=== PATIENT | female | born 1995 | race American Indian/Alaskan Native ===

== ENCOUNTER 2017-11-27 17:47 | Outpatient (CLI) | payer MEDICAID ==
[2017-11-27 18:15] VITALS: BP 105/58
[2017-11-27 18:59] LABS: Bacteria,Urine 1+ /HPF (Negative); Bilirubin,Urine NEG (Negative); Blood,Urine NEG (Negative); Color,Urine Yellow (Yellow); Mucus,Urine FEW /HPF; Protein,Urine <15 mg/dL mg/dL (Negative)
[2017-11-27] MEDS ORDERED: LACTATED RINGERS 500 ML IV ONE (19:00)
== END 2017-11-27 20:30 | disposition home or self-care (01) ==
LOC: TRG 17:47
PROVIDERS: ATTEND Obstetrics & Gynecology
DX: O47.03 False labor before 37 completed weeks of gestation, third trimester (principal); Z3A.30 30 weeks gestation of pregnancy
CPT/HCPCS: 81001; J7120

== ENCOUNTER 2017-12-22 16:22 | Outpatient (CLI) | payer MEDICAID ==
[2017-12-22 17:44] VITALS: BP 110/65
[2017-12-22] MEDS ORDERED: LACTATED RINGERS 1,000 ML IV SCH (20:30)
[2017-12-22] MEDS ORDERED: LACTATED RINGERS 1,000 ML ONE ×2 (20:32→22:36)
[2017-12-22 21:12] LABS: Bilirubin,Urine NEG (Negative); Blood,Urine NEG (Negative); Color,Urine Yellow (Yellow); Mucus,Urine FEW /HPF; Protein,Urine <15 mg/dL mg/dL (Negative); Urobilinogen,Urine < 2.0 mg/dL (<2.0)
[2017-12-22] MEDS ORDERED: BRETHINE SUB-Q ONE (21:16)
[2017-12-22] MEDS ORDERED: BRETHINE ONE (21:19)
== END 2017-12-23 00:42 | disposition home or self-care (01) ==
LOC: TRG 16:22
PROVIDERS: ATTEND Obstetrics & Gynecology
DX: O47.03 False labor before 37 completed weeks of gestation, third trimester (principal); Z3A.33 33 weeks gestation of pregnancy
CPT/HCPCS: 59025; 81001; 96360; J3105; J7120

== ENCOUNTER 2017-12-29 16:56 | Outpatient (CLI) | payer MEDICAID ==
[2017-12-29 18:18] LABS: Bilirubin,Urine NEG (Negative); Blood,Urine NEG (Negative); Color,Urine Yellow (Yellow); Protein,Urine <15 mg/dL mg/dL (Negative)
[2017-12-29] MEDS ORDERED: LACTATED RINGERS 500 ML IV ONE (18:34)
[2017-12-29] MEDS ORDERED: PROCARDIA*For Tocolysis only PO ONE (19:18)
[2017-12-29 19:22] VITALS: BP 120/72
--- NOTE | 2017-12-29 21:54 | Ultrasound Report ---
FINAL REPORT EXAM: US OB LIMITED HISTORY: DEN TECHNIQUE: Grayscale, color flow and M-mode imaging was performed for the purpose of evaluation of DEN. FINDINGS: There is demonstration of a single intrauterine gestation in cephalic position with heart rate measured at 131 beats per minute. DEN is measured at 27.9 centimeters. IMPRESSION: 1. DEN is measured at 27.9 centimeters. (Upper limits of normal measurement is 24 centimeters).
== END 2017-12-29 20:25 | disposition home or self-care (01) ==
LOC: TRG 16:56
PROVIDERS: ATTEND Obstetrics & Gynecology
DX: O47.03 False labor before 37 completed weeks of gestation, third trimester (principal); Z3A.34 34 weeks gestation of pregnancy
CPT/HCPCS: 59025; 76815; 81001; 96360; J7120

== ENCOUNTER 2018-01-22 06:42 | Outpatient (CLI) | payer MEDICAID ==
[2018-01-22 09:02] VITALS: BP 131/76
[2018-01-22] MEDS ORDERED: VISTARIL PO NR (09:32)
== END 2018-01-22 09:45 | disposition home or self-care (01) ==
LOC: TRG 06:42
PROVIDERS: ATTEND Obstetrics & Gynecology
DX: O62.8 Other abnormalities of forces of labor (principal); Z3A.38 38 weeks gestation of pregnancy
CPT/HCPCS: 59025; Q0177

== ENCOUNTER 2020-10-09 19:09 | Outpatient (CLI) | payer MEDICAID ==
--- NOTE | 2020-10-09 20:13 | Ultrasound Report ---
Obstetrical ultrasound limited INDICATION: well being. DEN evaluation IMPRESSION: DEN measures 15.1 cm. heart rate 1 24 bpm. Signer Name: Akil Viera MD Signed: 10/09/2020 8:09 PM Workstation Name: [id number]
[2020-10-09 23:11] VITALS: BP 123/74
== END 2020-10-10 00:04 | disposition home or self-care (01) ==
LOC: TRG 19:09 → APU 19:17 → TRG 10-10 00:04
PROVIDERS: ATTEND Obstetrics & Gynecology
DX: Z34.93 Encounter for supervision of normal pregnancy, unspecified, third trimester (principal); Z3A.30 30 weeks gestation of pregnancy
CPT/HCPCS: 36415; 76815; 84112